=== PATIENT | female | born 1965 | race Caucasian/White ===

== ENCOUNTER 2016-08-09 19:52 | Emergency (ER) | payer MEDICAID ==
--- NOTE | 2016-08-10 19:08 | ER ---
ADMIT: 08/09/2016 RM/LOC: ER [facility] MR#: [id number] [id number] STANLEY, ELICEO [address] [place] [address] Emergency Room Report SEX: F AGE: 51 : 1965 DATE: 08/09/2016 HISTORY OF PRESENT ILLNESS: A 51-year-old female with diabetes, presents to the emergency room with upper abdomen pain that radiates around her back in a band-like form. Denies any nausea, vomiting, diarrhea, fever. Otherwise, everything is negative. Physical examination is negative. She states that last time she was here, she was given ketorolac and it helped her. Vitals within normal limits. She was put on Lyrica last time and has been taking it for about 4 days. I am going to go ahead and give her a shot of Toradol and send her home with some Toradol for use, but she needs to stop the naproxen she is taking in order to take the ketorolac. CLINICAL IMPRESSION: Abdominal pain, chronic abdominal muscle. PLAN: The patient discharged with instructions, see T-sheet. ABBY Alvarez / Kyra Bonilla MD / chano JOB #: [id number] CC: Kyra Bonilla MD, Attending Physician Heidy Zuluaga MD, Family Physician
== END 2016-08-09 20:58 | disposition home or self-care (01) ==
LOC: ER 19:52
DX: R10.10 Upper abdominal pain, unspecified (principal); M79.1 Myalgia; I10 Essential (primary) hypertension; E11.9 Type 2 diabetes mellitus without complications; Z79.899 Other long term (current) drug therapy

== ENCOUNTER → 2016-08-30 | Outpatient (CLI) | payer MEDICAID | END | disposition home or self-care (01) | LOC: RAD.S 08-01 08:20 | DX: Z12.31 Encounter for screening mammogram for malignant neoplasm of breast (principal) ==

== ENCOUNTER → 2016-09-20 | Outpatient (CLI) | payer MEDICAID | END | disposition home or self-care (01) | LOC: PTH.S 09:00 → RAD.S 09:30 → PTH.S 13:50 | DX: R07.9 Chest pain, unspecified (principal); R06.00 Dyspnea, unspecified; R91.8 Other nonspecific abnormal finding of lung field ==

== ENCOUNTER → 2016-09-29 | Outpatient (CLI) | payer MEDICAID | END | disposition home or self-care (01) | LOC: RESC 12:46 | DX: R06.00 Dyspnea, unspecified (principal) ==